=== PATIENT | female | born 1950 | race Caucasian/White ===

== ENCOUNTER 2017-02-26 04:59 | Emergency (ER) | payer MEDICARE, OTHER ==
--- NOTE | 2017-02-26 05:51 | ERNOTE ---
Chest Pain/Cardiac HPI Chief Complaint: Palpitations Time Seen by Provider: 02/26/17 05:34 Source: patient Exam Limitations: no limitations Immunizations: IMMUNIZATION HX Immunizations Up to Date Yes History of Influenza Vaccine Yes Hx Pneumococcal Vaccination Yes Allergies/Adverse Reactions: Allergies No Known Allergies Allergy (Unverified 02/26/17 05:13) Home Medications: HOME MEDICATIONS Ascorbic Acid [Vitamin C] 1,000 mg PO DAILY 02/26/17 [Last Taken Unknown] Aspirin [Aspirin EC] 81 mg PO DAILY 02/26/17 [Last Taken Unknown] Biotin 5 mg PO DAILY 02/26/17 [Last Taken Unknown] Bisoprol/Hydrochlorothiazide [Ziac 10/6.25MG] 1 tab PO BID 02/26/17 [Last Taken Unknown] Calcium Carb, Citrate/Vit D3 [Calcium + D3 ER Tablet] 2 each PO DAILY 02/26/17 [ Last Taken Unknown] Cayenne 450 mg PO DAILY 02/26/17 [Last Taken Unknown] Cinnamon Bark [Cinnamon] 500 mg PO DAILY 02/26/17 [Last Taken Unknown] Cyanocobalamin (Vitamin B-12) [Vitamin B12] 2,500 mcg PO DAILY 02/26/17 [Last Taken Unknown] Flaxseed Oil [Pryor-3 Flaxseed Oil] 1,000 mg PO DAILY 02/26/17 [Last Taken Unknown] Glucosa Gaines 2Kcl/Chondroitin Gaiens [Glucosamine Chondroitin Caplet] 1 each PO DAILY 02/26/17 [Last Taken Unknown] Levocarnitine Tartrate [l-Carnitine] 500 mg PO DAILY 02/26/17 [Last Taken Unknown] Lysine HCl [l-Lysine] 500 mg PO DAILY 02/26/17 [Last Taken Unknown] Multivitamin [Multivitamins] 1 each PO DAILY 02/26/17 [Last Taken Unknown] Omeprazole [Prilosec] 20 mg PO DAILY 02/26/17 [Last Taken Unknown] Ubidecarenone [Coq10] 50 mg PO DAILY 02/26/17 [Last Taken Unknown] Vitamin B Complex 1 each PO DAILY 02/26/17 [Last Taken Unknown] Vitamin E 1,000 unit PO DAILY 02/26/17 [Last Taken Unknown] Narrative: Pt describes fluttering in her chest that comes and goes. Feeling like her heart speeds up and slows down and is 'very irregular'. lasts for about 2 hours at a time and spontaneously resolves. No activities that increase or decrease the episodes. Mild lightheadedness during episodes Timing: intermittent Severity/Quality: moderate Location: left chest Activities at Onset: sleep Modifying Factors - Improves: Present: nothing Modifying Factors - Worsens: Present: nothing Review of Systems - Review of Systems Constitutional: Present: recent illness - influenza 2 weeks ago but did not effect the frequency of these episodes EYE: Present: no symptoms reported ENT: Present: no symptoms reported Respiratory: Absent: shortness of breath Cardiology: Present: See HPI, palpitations. Absent: chest pain, syncope, edema Gastrointestinal/Abdominal: Absent: nausea, vomiting Genitourinary: Present: no symptoms reported Musculoskeletal: Present: no symptoms reported Skin: Present: no symptoms reported Neurological: Present: no symptoms reported Endocrine: Absent: excessive sweating, flushing Hematologic/Lymphatic: Present: no symptoms reported Psych: Present: no symptoms reported - Patient's Past Medical History Patient History - Medical: No pertinent hx, GERD Patient History - Cardiac/Respiratory: Arrhythmias, Hypertension Patient History - Cancer: No Hx of Cancer Patient History - Surgical Procedures: Hysterectomy, T & A, Other Patient History - Other: None - Social History Living Situations: spouse Abuse History: No History of abuse Psych History: No pertinent hx Smoking Status: Never smoker Alcohol Use: none Drug Use: none - Immunizations Immunizations Up to Date: Yes Hx Pneumococcal Vaccination: Yes History of Influenza Vaccine: Yes Physical Exam - Physical Exam General Appearance: Present: wd/wn, alert, no apparent distress Eye Exam: Normal inspection: bilateral Ears, Nose, Throat: Present: normal ENT inspection Neck: Present: normal inspection, nontender Respiratory: Present: no respiratory distress, normal breath sounds, lungs clear Cardiovascular/Chest: Present: regular rate, rhythm, no murmur Gastrointestinal/Abdominal: Present: normal bowel sounds, nontender Back Exam: Present: normal inspection Extremity Exam: Present: normal inspection, normal range of motion, no edema Neurological Exam: Present: alert, oriented, normal mood/affect, no motor/ sensory deficits Skin Exam: Present: normal color, warm/dry ED Progress - Results and Orders Patient's Lab Results:: I have reviewed the patient's lab results. Results and Orders: Laboratory Tests 02/26/17 02/26/17 06:00 06:00 WBC 4.0 Hgb 12.4 L Hct 36.0 L Plt Count 243 Sodium 143 H Potassium 3.5 Chloride 106 Carbon Dioxide 27.9 Anion Gap 12.6 BUN 8 Creatinine 0.42 Random Glucose 93 Calcium 9.1 Total Bilirubin 0.4 AST 24 ALT 21 Alkaline Phosphatase 61 Troponin I Less than 0.017 Total Protein 7.4 Albumin 3.9 TSH 1.235 - Vital Signs Vital Signs: Vital Signs 02/26/17 05:05 Temperature 36.8 C Pulse Rate 54 L Respiratory 14 Rate Blood Pressure 185/94 O2 Sat by Pulse 97 Oximetry - EKG EKG read: Interp. by me EKG Comments: Sinus bradycardia at [address] or T wave changes. - X-Ray X-Ray #1 X-Ray: chest Interpretation: Interp. by me X-ray Comments: nothing acute - Progress/Reassessment Chief Complaint: Palpitations Progress:: Improved Departure - Departure Clinical Impression: Palpitations Disposition: Home Follow Up Needed Condition: Good Instructions: Palpitations, [id number] Additional Instructions: Return to ER if your symptoms return. Make an appointment with Dr. Wagner as soon as possible when you get home for further work up.
[2017-02-26 06:03] LABS: Hemoglobin 12.4 gm/dL (12.5-16.0); Mean Cell Volume 87.8 fl (78-100); Mean Corpuscular Hemoglobin 30.2 pg (27-31); Mean Corpuscular Hgb Conc 34.4 g/dl (32-36); Mean Platelet Volume 9.9 fl (6.0-9.5); Neutrophil # 1.9 K/mm3 (1.3-6.0); Neutrophil % 47.8 % (42-75.0); Platelet Count 243 K/mm3 (150-450); Red Cell Distribution Width 11.9 % (11.5-14.0)
[2017-02-26 06:13] VITALS: BP 118/67
[2017-02-26 06:27] LABS: ALT 21 U/L (19-67); AST 24 U/L (0-48); Albumin * 3.9 gm/dl (3.4-5.0); Alkaline Phosphatase * 61 U/L (50-170); Anion Gap 12.6 mmol/L (6.8-13.8); Bilirubin, Total 0.4 mg/dL (0.0-1.1); Blood Urea Nitrogen 8 mg/dL (3-23); Ca. Corrected For Albumin 8.9 mg/dL (8.4-10.2); Calcium * 9.1 mg/dL (7.9-10.9); Carbon Dioxide 27.9 mmol/L (24-32.6); Chloride 106 mmol/L (97-106); Glucose * 93 mg/dL (70-110); Potassium 3.5 mmol/L (3.4-4.6); Sodium 143 mmol/L (132-142); TSH * 1.235 uIU/mL (0.358-3.74); Total Protein 7.4 gm/dL (6.2-8.2); Troponin I Less than 0.017 ng/ml (0.00-0.10)
== END 2017-02-26 06:50 | disposition home or self-care (01) ==
LOC: ER 04:59
DX: R00.2 Palpitations (principal); I10 Essential (primary) hypertension; K21.9 Gastro-esophageal reflux disease without esophagitis